=== PATIENT | male | born 1965 | race African-American/Black ===

== ENCOUNTER 2016-10-20 03:00 | Inpatient (IN) | payer MEDICARE, OTHER ==
--- NOTE | ~2016-10-20 | HP ---
History And Physical [address] [place]. [address] NAME: NACHO OSMAN : 61 STATUS : ADM IN [facility]ED WITH [facility]#: [id number] AGE: 51 ADM/REG DATE : 10/20/16 MR#: [id number] REPORT SERV DATE: 10/20/16 DICTATED BY: MARITZA ALVA DATE: 10/20/16 REPORT STATUS : Draft TRANSCRIBED BY: MODL DATE: 10/20/16 DATE OF ADMISSION: 10/20/2016 CHIEF COMPLAINT: A 51-year-old male presenting with persistent abdominal pain and CT scan evidence of colitis. HISTORY OF PRESENTING ILLNESS: The patient's history was obtained through careful interview with the patient, coupled with review of [facility] and [facility] medical records. The patient states that on October 15, he developed the abdominal pain. He describes it in his right middle quadrant, radiating into bilateral lower quadrants, a burning and cramping quality, 10/10 severity at its worse, exacerbated by food intake and associated with nausea and vomiting. He presented to the emergency department on October [address] scan that showed colitis but was thought to be stable enough to return home with supportive care. Despite this, the patient has had only increasing abdominal pain in the last two days, prompting him to come back to the hospital. No lightheadedness. No bright red blood per rectum. No diarrhea. No shortness of breath. No fevers or chills. REVIEW OF SYSTEMS: Otherwise, a 14-point review of systems was obtained and was negative. PAST MEDICAL HISTORY: 1. Chronic pain management. 2. Previous GI bleed seen by Dr. Gonzalez. 3. Hypertension. 4. Right arm osteomyelitis. 5. Pneumonia. 6. "Gangrene" of the colon in 1998, status post 3 feet of his colon reportedly resected. 7. Neuropathy. 8. Depression and anxiety. 9. Nephrolithiasis. 10.Reported congestive heart failure with ejection fraction 50% with negative catheterization of the heart done in [address] Cabrera. PAST SURGICAL HISTORY: 1. Partial colectomy with about "3 feet" of his colon removed for "gangrene" in 1998 with an ostomy and then ostomy reversal. 2. Neck surgery. 3. Back surgery. ALLERGIES: NO KNOWN DRUG ALLERGIES. History And Physical [address] [place]. [address] NAME: NACHO OSMAN : 61 STATUS : ADM IN PAT#: [id number] AGE: 51 ADM/REG DATE : 10/20/16 MR#: [id number] REPORT SERV DATE: 10/20/16 DICTATED BY: MARITZA ALVA DATE: 10/20/16 REPORT STATUS : Draft TRANSCRIBED BY: MODL DATE: 10/20/16 SOCIAL HISTORY: The patient is a smoker. Does not drink alcohol. He is on disability. He lives with his mother. He has no children. FAMILY HISTORY: Mother with breast cancer and heart disease. Father unknown to him. CURRENT MEDICATIONS: Unknown at this time, but they have been requested by Pharmacy. PHYSICAL EXAMINATION: VITAL SIGNS: Temperature 99.5, pulse 101, blood pressure 137/71, respiratory rate 16, and O2 saturation 99% on room air. GENERAL: A pleasant, cooperative male, he describes distress from the abdominal pain and nausea. HEENT: Pupils equal, round, and reactive to light. No conjunctival pallor. No scleral icterus. Nares are patent. Oropharynx is clear of obstruction. Mildly dry mucous membranes. NECK: Trachea midline. No thyromegaly. LYMPH: No cervical lymphadenopathy. No supraclavicular lymphadenopathy. No inguinal lymphadenopathy. RESPIRATORY: Clear to auscultation at the bases. No wheezes, no rales, no rhonchi. Normal respiratory effort. CARDIOVASCULAR: Tachycardic. Regular rhythm. No murmurs, rubs, or gallops. No current extremity edema is appreciated. ABDOMEN: Significant lower quadrant abdominal pain, particularly in the left lower quadrant. No distention. No guarding, no rebound. No hepatosplenomegaly. DERMATOLOGICAL: Warm and dry extremities. No pallor. No cyanosis. PSYCHIATRIC: Normal affect. Good mood. Alert and oriented x3. LABORATORY DATA: White blood cell count 8.6, hemoglobin 13, hematocrit 39, and platelets 164. Sodium 146, potassium 3.7, chloride 111, bicarb 27, BUN 16, creatinine 0.99, glucose 106, lipase 325, and lactic acid 0.6. Liver enzymes within normal limits. Urinalysis negative for infection. STUDIES: A CT scan of the abdomen on October 18 showed colitis. ASSESSMENT AND PLAN: 1. Acute colitis. Place on IV antibiotics. Provide supportive care. History of bowel resection. Consult Dr. Gonzalez, extension division director. 2. History of congestive heart failure. Monitor volume status closely. KPL/MODL Maritza Alva M.D. / [id number] History And Physical [address] [address] NAME: NACHO OSMAN : 61 STATUS : ADM IN [facility]ED WITH [facility]#: [id number] AGE: 51 ADM/REG DATE : 10/20/16 MR#: [id number] REPORT SERV DATE: 10/20/16 DICTATED BY: MARITZA ALVA DATE: 10/20/16 REPORT STATUS : Draft TRANSCRIBED BY: POPPY DATE: 10/20/16 CC: Prateek Joseph M.D.
--- NOTE | ~2016-10-20 | IDS ---
Interim Discharge Summary [facility] [address] [place]. [address] NAME: NACHO OSMAN : 61 STATUS : ADM IN PAT#: [id number] AGE: 51 ADM/REG DATE : 10/20/16 MR#: [id number] REPORT SERV DATE: 10/26/16 DICTATED BY: JOSE GUADALUPE CORNELIUS DATE: 10/26/16 REPORT STATUS : Draft TRANSCRIBED BY: MODL DATE: 10/26/16 ADMISSION DATE: 10/20/2016 DISCHARGE DATE: 10/26/2016 CURRENT HOSPITAL DIAGNOSES: 1. Colitis. 2. Hypertension. 3. History of left ventricular dysfunction with an EF of 43% in 2013. 4. Depression and anxiety. CONSULTATIONS: GI. PROCEDURES: CT scan of the abdomen and pelvis done on the showing abnormal appearance of the transverse colon consistent with colitis. Differential, infectious, inflammatory, or ischemic. CURRENT PHYSICAL FINDINGS AND HISTORY OF PRESENT ILLNESS: Please see dictated H and P by Dr. Meeks. In brief, the patient is a 51-year-old male, who presented with complaint of abdominal pain, had been present for several days, was noted first on a CT scan done on the , several days before admission. Vital signs at the time of presentation, blood pressure was 137/71, temperature was 99.3 which has been his highest temperature since admission. He has been afebrile since he has not been tachycardic with heart rates in the 70s and 80s. LAB WORK: He had a procalcitonin on the which was less than 0.05. His BMP was unremarkable at presentation. He has had a slight bump in his creatinine on the to 1.16. Lipase was 161. AST and ALT were within the normal range. Total bilirubin which was 1.6 on the has been 0.4 and 0.6 respectively since that time. BNP was 8.8. Lactate was 0.6. White count was 8.5. He has had no elevation of his white count during his hospital stay. Urinalysis on the was positive only for urobilinogen of 2.0. Stool sample done on the showed no fecal occult blood and no white cells. HOSPITAL COURSE: The patient was admitted. He was given reasonable pain medications. GI Dr. Gonzalez was consulted. He was placed on IV fluids with liquid diet. After IV fluids were administered, he was placed on Levaquin and Flagyl IV. Dr. Gonzalez answered the call, they were consulted probably on the . Additional labs ordered including a sedimentation rate which was 7 and the C-reactive protein which was 7.7. He was placed on Protonix, MiraLAX and the stool samples were requested. I saw him on the , decreased his IV fluids and decreased his Dilaudid. Later that day, he was seen again by GI and started on Movantik. On the , his Dilaudid was further decreased. He was placed back on his Cozaar for some hypertension. On the , his Levaquin was changed to p.o. Dilaudid was further decreased. His diet was advanced as tolerated and a CBC and procalcitonin were requested. GI stopped his Flagyl, upped his Amitiza and advanced his diet to regular. He then began experiencing some diarrhea on the and his Amitiza was decreased. There were no further changes in his pain medications; however on the , they were discontinued and Interim Discharge Summary [address] [address] NAME: NACHO OSMAN : 61 STATUS : ADM IN PAT#: [id number] AGE: 51 ADM/REG DATE : 10/20/16 MR#: [id number] REPORT SERV DATE: 10/26/16 DICTATED BY: JOSE GUADALUPE CORNELIUS DATE: 10/26/16 REPORT STATUS : Draft TRANSCRIBED BY: MODL DATE: 10/26/16 have not been restarted. He has been trying to tolerate a regular diet. He did request Ensure for supplementation. At this point, the patient is on oral Movantik and oral Levaquin. His GI evaluation has been essentially negative other than the colitis on the CT. We will await GI's final recommendations but expect discharge soon. CONSTANCEF/POPPY Jose Guadalupe Cornelius M.D. / [id number] CC: Jose Guadalupe Cornelius M.D.
--- NOTE | ~2016-10-20 | DS ---
Discharge Summary [facility] [id number] [place]. [address] NAME: NACHO OSMAN : 61 STATUS : DIS IN PAT#: [id number] AGE: 51 ADM/REG DATE : 10/20/16 MR#: [id number] REPORT SERV DATE: 10/28/16 DICTATED BY: EYAD ANN DATE: 10/27/16 REPORT STATUS : Draft TRANSCRIBED BY: MODL DATE: 10/27/16 ADMISSION DATE: 10/20/2016 DISCHARGE DATE: 10/27/2016 DISCHARGE DIAGNOSES: Include: 1. Acute colitis. 2. History of adhesions and irritable bowel syndrome. 3. Generalized abdominal pain. 4. Depression and anxiety. 5. History of left ventricular dysfunction, chronic systolic heart failure with an ejection fraction of 43%. DISCHARGE MEDICATIONS: As follows; Xanax 2 mg twice a day; Coreg 6.25 mg twice a day prescription written; Bentyl 20 mg p.o. with meals and at bedtime prescription written; Levaquin 750 mg daily for six more days prescription written; Cozaar 50 mg daily at bedtime prescription written; Amitiza 8 mcg p.o. with breakfast and supper, prescription written; Movantik 25 mg p.o. daily prescription written; Lyrica 200 mg three times a day; simvastatin 10 mg at bedtime; Percocet 10/325 one tablet every 6 hours p.r.n. for pain, prescription written for that as well. HISTORY OF PRESENT ILLNESS: A 51-year-old male presented with persistent abdominal pain and CT scan evidence of colitis. Please see the initial H and P of Dr. Jan Meeks. This patient is admitted to the Hospitalist Service for further evaluation and treatment which initially included empiric antibiotic therapy, supportive care, and consult placed to GI Dr. Gonzalez. Please also see the interim discharge summary of Dr. Prateek Joseph as patient's date of discharge is 10/27/2016, where hospital care was assumed by myself. The patient was feeling better, tolerating a diet, less abdominal pain. I discussed the case extensively with Dr. Gonzalez who recommended outpatient followup with regard to the problem in four weeks and to discharge him home with the above-described medication regimen. I have also instructed the patient to follow up with his primary care in the next three to four weeks as well which is the [facility]. I spent a lengthy amount of time discussing the new medication regimen, new medicines that he would be on. I have also increased his antihypertensives losartan and Coreg. Lab work today on date of discharge showed a sodium 144, potassium 3.8, BUN of 11, creatinine 0.81. White blood cells most recently on 10/24/2016 were 7.7 so the patient will be discharged home today on 10/27/2016 with the above medicines, followup plan. Please note greater than 30 minutes was spent on this discharge for medication teaching, followup planning, and further disposition. LILA/POPPY Discharge Summary [address] [place]. [address] NAME: NACHO OSMAN : 61 STATUS : DIS IN PAT#: [id number] AGE: 51 ADM/REG DATE : 10/20/16 MR#: [id number] REPORT SERV DATE: 10/28/16 DICTATED BY: EYAD ANN DATE: 10/27/16 REPORT STATUS : Draft TRANSCRIBED BY: POPPY DATE: 10/27/16 Eyad Ann NP / [id number] CC: Essence Schmitz M.D.
[2016-10-20 01:39] LABS: BASOPHILS 0.4 %; BASOPHILS ABSOLUTE 0.03 10/3/uL (0.0-0.16); EOSINOPHILS 3.1 %; EOSINOPHILS ABSOLUTE 0.26 10/3/uL (0.0-0.53); HEMATOCRIT 39.2 % (40.0-51.0); HEMOGLOBIN 13.4 g/dL (13.6-17.8); IMMATURE GRANULOCYTES 0.1 %; IMMATURE GRANULOCYTES ABSOLUTE 0.01 10/3/uL (0.0-0.11); LYMPHOCYTES 36.1 %; LYMPHOCYTES ABSOLUTE 3.07 10/3/uL (0.67-4.30); MEAN CORPUS HGB CONC 34.2 g/dL (32.0-36.0); MEAN CORPUSCULAR HEMOGLOB 30.8 pg (26.0-34.0); MEAN CORPUSCULAR VOLUME 90.1 fL (80-100); MONOCYTES 8.8 %; MONOCYTES ABSOLUTE 0.75 10/3/uL (0.21-1.20); NEUTROPHILS 51.5 %; NEUTROPHILS ABSOLUTE 4.38 10/3/uL (2.02-8.40); PLATELET COUNT 164 10/3/uL (150-400); RBC DISTRIBUTION WIDTH 14.2 % (12.0-16.0); RED CELL COUNT 4.35 10/6/uL (4.7-6.1); WHITE BLOOD CELLS 8.5 10/3/uL (4.5-10.5)
[2016-10-20 01:42] LABS: ASCORBIC ACID (UR NOT ORDER) 40 (NEG); BILIRUBIN, URINE NEGATIVE (NEG); ER URINALYSIS TAT 0 Hrs 00 Mins; KETONE, URINE NEGATIVE (NEG); LEUKOCYTE ESTERASE(NOT OR NEG (NEG); NITRITE (URINE) NEG (NEG); WBC (NOT ORDERED) (RFLEX) < 1 (0-5)
[2016-10-20 01:43] LABS: ER CBC TAT 0 Hrs 04 MinsNP; MANUAL DIFF NO %
[2016-10-20 01:56] LABS: A/G RATIO 1.1 (0.7-1.9); ALBUMIN 3.4 G/DL (3.5-5.0); CALCIUM, SERUM 8.6 MG/DL (8.5-10.4); CHLORIDE, SERUM 111 MMOL/L (96-112); CO2 (CARBON DIOXIDE) 27 MMOL/L (24-34); CREATININE 0.99 MG/DL (0.70-1.30); GFR AFRICAN AMERICAN 100 ML/MIN (>=60); GFR NON AFRICAN AMERICAN 87 ML/MIN (>=60); GLOBULIN 3.1 G/DL (2.5-4.1); GLUCOSE, SERUM 106 MG/DL (60-99); POTASSIUM, SERUM 3.7 MMOL/L (3.5-5.3); SGPT(ALT) 19 U/L (5-65); SODIUM, SERUM 146 MMOL/L (135-148); TOTAL PROTEIN 6.5 G/DL (6.0-8.5)
[2016-10-20 02:11] LABS: ALKALINE PHOSPHATASE 102 U/L (45-117); BUN (BLOOD UREA NITROGEN) 16 MG/DL (6-23); SGOT(AST) 15 U/L (5-40); TOTAL BILIRUBIN 0.4 MG/DL (0-1.2)
[~2016-10-20 03:00] MED LIST: "\\\"BP MED\\\"" PO; ALTA2.5 PO; AMIT50 PO; ASAB PO; COREG3 PO; COZ25 PO; LYRICA100 MG PO; LYRICA75 PO; MSCONT15 PO; NIFEDIAC CC90 MG PO; PERCOCET1 TA4 PO; ULTRAM50 PO; XANAX2 MG PO; ZANAFLEX 4 MG TA4 MG PO; ZOCOR10 PO
[2016-10-20] MEDS ORDERED: LYRICA200 MG PO (06:08)
[2016-10-20] MEDS ORDERED: PERCOCET 10/3251 TAB PO (06:11)
[2016-10-20] MEDS ORDERED: XANAX2 MG PO (06:12)
[2016-10-20 12:12] LABS: BASOPHILS 0.3 %; BASOPHILS ABSOLUTE 0.02 10/3/uL (0.0-0.16); EOSINOPHILS 2.6 %; EOSINOPHILS ABSOLUTE 0.18 10/3/uL (0.0-0.53); HEMOGLOBIN 11.8 g/dL (13.6-17.8); IMMATURE GRANULOCYTES 0.3 %; IMMATURE GRANULOCYTES ABSOLUTE 0.02 10/3/uL (0.0-0.11); LYMPHOCYTES 36.9 %; MEAN CORPUSCULAR HEMOGLOB 30.3 pg (26.0-34.0); MEAN CORPUSCULAR VOLUME 89.2 fL (80-100); MEAN PLATELET VOLUME 10.8 fL (9.2-13.0); MONOCYTES 10.5 %; MONOCYTES ABSOLUTE 0.74 10/3/uL (0.21-1.20); NEUTROPHILS 49.4 %; NEUTROPHILS ABSOLUTE 3.48 10/3/uL (2.02-8.40); PLATELET COUNT 146 10/3/uL (150-400); RBC DISTRIBUTION WIDTH 14.6 % (12.0-16.0); RED CELL COUNT 3.89 10/6/uL (4.7-6.1)
[2016-10-20 12:13] LABS: HEMATOCRIT 34.7 % (40.0-51.0); MANUAL DIFF NO %
[2016-10-20 12:19] LABS: INTERNATIONAL NORMAL RATI 1.1 UNITS (-); PARTIAL THROMBO TIME 33.4 SEC (22.5-37.2); PROTIME (NOT ORD) 13.6 SEC (12.0-14.5)
[2016-10-20 12:39] LABS: A/G RATIO 1.2 (0.7-1.9); ALBUMIN 2.9 G/DL (3.5-5.0); ALKALINE PHOSPHATASE 69 U/L (45-117); BUN (BLOOD UREA NITROGEN) 8 MG/DL (6-23); CALCIUM, SERUM 8.1 MG/DL (8.5-10.4); CHLORIDE, SERUM 112 MMOL/L (96-112); CO2 (CARBON DIOXIDE) 26 MMOL/L (24-34); CREATININE 0.73 MG/DL (0.70-1.30); GFR AFRICAN AMERICAN 123 ML/MIN (>=60); GFR NON AFRICAN AMERICAN 106 ML/MIN (>=60); GLOBULIN 2.5 G/DL (2.5-4.1); GLUCOSE, SERUM 82 MG/DL (60-99); POTASSIUM, SERUM 3.8 MMOL/L (3.5-5.3); SGOT(AST) 8 U/L (5-40); SGPT(ALT) 18 U/L (5-65); SODIUM, SERUM 145 MMOL/L (135-148); TOTAL BILIRUBIN 0.6 MG/DL (0-1.2); TOTAL PROTEIN 5.4 G/DL (6.0-8.5); TROPONIN I <0.02 NG/ML (<0.05)
[2016-10-21 06:47] LABS: BASOPHILS 0.3 %; BASOPHILS ABSOLUTE 0.02 10/3/uL (0.0-0.16); EOSINOPHILS 2.9 %; HEMATOCRIT 35.3 % (40.0-51.0); HEMOGLOBIN 11.8 g/dL (13.6-17.8); IMMATURE GRANULOCYTES 0.3 %; IMMATURE GRANULOCYTES ABSOLUTE 0.02 10/3/uL (0.0-0.11); LYMPHOCYTES 39.6 %; LYMPHOCYTES ABSOLUTE 2.74 10/3/uL (0.67-4.30); MEAN CORPUS HGB CONC 33.4 g/dL (32.0-36.0); MEAN CORPUSCULAR HEMOGLOB 30.5 pg (26.0-34.0); MEAN CORPUSCULAR VOLUME 91.2 fL (80-100); MEAN PLATELET VOLUME 11.2 fL (9.2-13.0); MONOCYTES 7.2 %; NEUTROPHILS 49.7 %; NEUTROPHILS ABSOLUTE 3.44 10/3/uL (2.02-8.40); PLATELET COUNT 162 10/3/uL (150-400); RBC DISTRIBUTION WIDTH 14.7 % (12.0-16.0); RED CELL COUNT 3.87 10/6/uL (4.7-6.1); WHITE BLOOD CELLS 6.9 10/3/uL (4.5-10.5)
[2016-10-21 06:49] LABS: MANUAL DIFF NO %
[2016-10-21 07:02] LABS: BUN (BLOOD UREA NITROGEN) 6 MG/DL (6-23); C-REACTIVE PROTEIN 7.7 MG/L (<8.0); CALCIUM, SERUM 8.7 MG/DL (8.5-10.4); CHLORIDE, SERUM 111 MMOL/L (96-112); CO2 (CARBON DIOXIDE) 23 MMOL/L (24-34); CREATININE 0.88 MG/DL (0.70-1.30); GFR AFRICAN AMERICAN 114 ML/MIN (>=60); GFR NON AFRICAN AMERICAN 98 ML/MIN (>=60); POTASSIUM, SERUM 3.6 MMOL/L (3.5-5.3); SODIUM, SERUM 144 MMOL/L (135-148)
[2016-10-21 07:03] LABS: GLUCOSE, SERUM 139 MG/DL (60-99)
[2016-10-21 07:57] LABS: SED RATE 7 MM/HR (0-15)
[2016-10-24 05:41] LABS: BASOPHILS 0.5 %; BASOPHILS ABSOLUTE 0.04 10/3/uL (0.0-0.16); EOSINOPHILS 3.8 %; EOSINOPHILS ABSOLUTE 0.29 10/3/uL (0.0-0.53); HEMOGLOBIN 13.5 g/dL (13.6-17.8); IMMATURE GRANULOCYTES 0.7 %; IMMATURE GRANULOCYTES ABSOLUTE 0.05 10/3/uL (0.0-0.11); LYMPHOCYTES 35.8 %; LYMPHOCYTES ABSOLUTE 2.74 10/3/uL (0.67-4.30); MEAN CORPUS HGB CONC 34.1 g/dL (32.0-36.0); MEAN CORPUSCULAR HEMOGLOB 30.8 pg (26.0-34.0); MEAN CORPUSCULAR VOLUME 90.2 fL (80-100); MEAN PLATELET VOLUME 10.4 fL (9.2-13.0); MONOCYTES 10.7 %; MONOCYTES ABSOLUTE 0.82 10/3/uL (0.21-1.20); NEUTROPHILS 48.5 %; NEUTROPHILS ABSOLUTE 3.71 10/3/uL (2.02-8.40); RBC DISTRIBUTION WIDTH 14.1 % (12.0-16.0); RED CELL COUNT 4.39 10/6/uL (4.7-6.1); WHITE BLOOD CELLS 7.7 10/3/uL (4.5-10.5)
[2016-10-24 05:44] LABS: HEMATOCRIT 39.6 % (40.0-51.0); MANUAL DIFF NO %; PLATELET COUNT 225 10/3/uL (150-400)
[2016-10-27 05:35] LABS: CALCIUM, SERUM 8.7 MG/DL (8.5-10.4); CHLORIDE, SERUM 109 MMOL/L (96-112); CO2 (CARBON DIOXIDE) 26 MMOL/L (24-34); CREATININE 0.81 MG/DL (0.70-1.30); GFR AFRICAN AMERICAN 118 ML/MIN (>=60); GFR NON AFRICAN AMERICAN 101 ML/MIN (>=60); POTASSIUM, SERUM 3.8 MMOL/L (3.5-5.3); SODIUM, SERUM 144 MMOL/L (135-148)
[2016-10-27 05:36] LABS: BUN (BLOOD UREA NITROGEN) 11 MG/DL (6-23); GLUCOSE, SERUM 105 MG/DL (60-99)
[2016-10-27] MEDS ORDERED: COREG6 PO (12:50)
[2016-10-27] MEDS ORDERED: COZ50 PO (12:51)
[2016-10-27] MEDS ORDERED: LEVAQUIN750 MG PO (12:53)
[2016-10-27] MEDS ORDERED: BENTYL20 PO (12:53)
[2016-10-27] MEDS ORDERED: AMITIZA8 MCG PO (12:54)
[2016-10-27] MEDS ORDERED: MOVANTIK25 MG PO (12:55)
[2017-05-17] MEDS ORDERED: LYRICA200 MG PO (08:26)
[2017-05-17] MEDS ORDERED: XANAX2 MG PO (08:27)
[2017-05-17] MEDS ORDERED: NORCO1 TAB PO (08:29)
[2017-05-17] MEDS ORDERED: ULTRAM50 PO (09:11)
[2017-05-17] MEDS ORDERED: ZANAFLEX2 MG PO (09:11)
[2017-05-17] MEDS ORDERED: ZOFRAN4 PO (09:12)
[2017-05-21] MEDS ORDERED: DIL4TAB PO (10:17)
[2017-05-21] MEDS ORDERED: V5 PO (10:17)
== END 2016-10-27 15:08 | disposition home or self-care (01) | DRG 392 ==
LOC: ER 03:00 → 6NO 04:40
PROVIDERS: Hospitalist; Internal Medicine; Internal Medicine Gastroenterology; Specialist
DX: K58.0 Irritable bowel syndrome with diarrhea (principal); I11.0 Hypertensive heart disease with heart failure; I50.22 Chronic systolic (congestive) heart failure; G62.9 Polyneuropathy, unspecified; F32.9 Major depressive disorder, single episode, unspecified; F41.9 Anxiety disorder, unspecified; G89.29 Other chronic pain; K21.9 Gastro-esophageal reflux disease without esophagitis; F17.210 Nicotine dependence, cigarettes, uncomplicated; Z87.01 Personal history of pneumonia (recurrent); Z90.49 Acquired absence of other specified parts of digestive tract; Z87.442 Personal history of urinary calculi; Z80.3 Family history of malignant neoplasm of breast
CPT/HCPCS: 36415; 74022; 74176; 80048; 80053; 81001; 82150; 82272; 83605; 83690; 83735; 83880; 84145; 84443; 84484; 85025; 85610; 85652; 85730; 86140; 86850; 86900; 86901; 89055; 93005; 96374; 99285; A9270-GY; J1170; J1956; J1980; J2405

== ENCOUNTER 2017-01-08 17:55 | Emergency (ER) | payer MEDICARE, OTHER ==
[2017-01-08 17:24] LABS: BASOPHILS 0.3 %; BASOPHILS ABSOLUTE 0.02 10/3/uL (0.0-0.16); EOSINOPHILS 2.7 %; EOSINOPHILS ABSOLUTE 0.21 10/3/uL (0.0-0.53); ER CBC TAT 0 Hrs 07 Mins; HEMATOCRIT 37.8 % (40.0-51.0); HEMOGLOBIN 12.9 g/dL (13.6-17.8); IMMATURE GRANULOCYTES 0.3 %; IMMATURE GRANULOCYTES ABSOLUTE 0.02 10/3/uL (0.0-0.11); LYMPHOCYTES 29.4 %; LYMPHOCYTES ABSOLUTE 2.26 10/3/uL (0.67-4.30); MEAN CORPUS HGB CONC 34.1 g/dL (32.0-36.0); MEAN CORPUSCULAR HEMOGLOB 30.9 pg (26.0-34.0); MEAN CORPUSCULAR VOLUME 90.4 fL (80-100); MEAN PLATELET VOLUME 10.4 fL (9.2-13.0); MONOCYTES 8.6 %; MONOCYTES ABSOLUTE 0.66 10/3/uL (0.21-1.20); NEUTROPHILS 58.7 %; NEUTROPHILS ABSOLUTE 4.52 10/3/uL (2.02-8.40); PLATELET COUNT 162 10/3/uL (150-400); RED CELL COUNT 4.18 10/6/uL (4.7-6.1); WHITE BLOOD CELLS 7.7 10/3/uL (4.5-10.5)
[2017-01-08 17:30] LABS: MANUAL DIFF NO %
[2017-01-08 17:40] LABS: A/G RATIO 1.5 (0.7-1.9); ALKALINE PHOSPHATASE 69 U/L (45-117); BUN (BLOOD UREA NITROGEN) 11 MG/DL (6-23); CALCIUM, SERUM 8.5 MG/DL (8.5-10.4); CHLORIDE, SERUM 110 MMOL/L (96-112); CREATININE 0.95 MG/DL (0.70-1.30); GFR AFRICAN AMERICAN 105 ML/MIN (>=60); GFR NON AFRICAN AMERICAN 91 ML/MIN (>=60); GLOBULIN 2.6 G/DL (2.5-4.1); GLUCOSE, SERUM 120 MG/DL (60-99); POTASSIUM, SERUM 3.5 MMOL/L (3.5-5.3); SGOT(AST) 14 U/L (5-40); SGPT(ALT) 24 U/L (5-65); SODIUM, SERUM 146 MMOL/L (135-148); TOTAL BILIRUBIN 0.4 MG/DL (0-1.2); TOTAL PROTEIN 6.4 G/DL (6.0-8.5)
[2017-01-08 17:41] LABS: ALBUMIN 3.8 G/DL (3.5-5.0); CO2 (CARBON DIOXIDE) 33 MMOL/L (24-34)
[~2017-01-08 17:55] MED LIST changes: +AMITIZA8 MCG PO; +BENTYL20 PO; +COREG6 PO; +COZ50 PO; +LEVAQUIN750 MG PO; +LYRICA200 MG PO; +MOVANTIK25 MG PO; +PERCOCET 10/3251 TAB PO
[2017-05-17] MEDS ORDERED: LYRICA200 MG PO (08:26)
[2017-05-17] MEDS ORDERED: XANAX2 MG PO (08:27)
[2017-05-17] MEDS ORDERED: NORCO1 TAB PO (08:29)
[2017-05-17] MEDS ORDERED: ULTRAM50 PO (09:11)
[2017-05-17] MEDS ORDERED: ZANAFLEX2 MG PO (09:11)
[2017-05-17] MEDS ORDERED: ZOFRAN4 PO (09:12)
[2017-05-21] MEDS ORDERED: V5 PO (10:17)
[2017-05-21] MEDS ORDERED: DIL4TAB PO (10:17)
== END 2017-01-08 18:15 | disposition home or self-care (01) ==
LOC: ER 17:55
PROVIDERS: Emergency Medicine
DX: S09.90XA Unspecified injury of head, initial encounter (principal); S16.1XXA Strain of muscle, fascia and tendon at neck level, initial encounter; I11.0 Hypertensive heart disease with heart failure; I50.9 Heart failure, unspecified; Z87.01 Personal history of pneumonia (recurrent); F32.9 Major depressive disorder, single episode, unspecified; F41.9 Anxiety disorder, unspecified; Z87.442 Personal history of urinary calculi; Z79.899 Other long term (current) drug therapy; Y04.0XXA Assault by unarmed brawl or fight, initial encounter
CPT/HCPCS: 70450; 72125; 80053; 85025; 99284

== ENCOUNTER 2017-01-26 17:53 | Emergency (ER) | payer MEDICARE, OTHER ==
[2017-05-17] MEDS ORDERED: LYRICA200 MG PO (08:26)
[2017-05-17] MEDS ORDERED: XANAX2 MG PO (08:27)
[2017-05-17] MEDS ORDERED: NORCO1 TAB PO (08:29)
[2017-05-17] MEDS ORDERED: ZANAFLEX2 MG PO (09:11)
[2017-05-17] MEDS ORDERED: ULTRAM50 PO (09:11)
[2017-05-17] MEDS ORDERED: ZOFRAN4 PO (09:12)
[2017-05-21] MEDS ORDERED: DIL4TAB PO (10:17)
[2017-05-21] MEDS ORDERED: V5 PO (10:17)
== END 2017-01-26 18:22 | disposition home or self-care (01) ==
LOC: ER 17:53
DX: K08.89 Other specified disorders of teeth and supporting structures (principal); F17.200 Nicotine dependence, unspecified, uncomplicated; Z87.01 Personal history of pneumonia (recurrent); I10 Essential (primary) hypertension; F41.9 Anxiety disorder, unspecified; F32.9 Major depressive disorder, single episode, unspecified; Z79.899 Other long term (current) drug therapy
CPT/HCPCS: 99282